=== PATIENT | male | born 1950 | race Caucasian/White ===

== ENCOUNTER 2017-08-21 20:57 | Emergency (ER) | payer MEDICARE, BC ==
--- NOTE | 2017-08-21 21:23 | Emergency Department Record ---
History of Present Illness - General Chief complaint: Male Urogenital Problem Stated complaint: CAN'T URINATE, POST OP Time Seen by Provider: 08/21/17 21:19 Source: Patient Mode of Arrival: Ambulatory Limitations: No limitations - History of Present Illness Initial comments: 66 yo male presents to ED for evaluation of decreased urine stream following stent placement in the left ureter earlier this morning with Dr. Vera. Patient reports mild blood and clots in the urine, but reports that he is able to urinate but his stream is slower and more difficulty than usual. Patient denies fevers, chills, or recent illness symptoms. MD Complaint: Dysuria Onset/Timin -: Days(s) Radiation: None Severity: Moderate Quality: Dull Consistency: Constant Improves with: None Worsens with: Urination Recent surgery Reports: Denies other symptoms - Related Data Home Medications Medication Instructions Recorded Confirmed Last Taken Cilostazol 100 mg PO BID 08/21/17 08/21/17 Unknown Dexlansoprazole [Dexilant] 60 mg PO DAILY 08/21/17 08/21/17 Unknown Enoxaparin Sodium [Enoxaparin 120 mg SQ DAILY 08/21/17 08/21/17 08/20/17 Sodium] Prochlorperazine Maleate 10 mg PO DAILY 08/21/17 08/21/17 Unknown [Compazine] Tramadol HCl [Tramadol HCl] 50 mg PO Q8H 08/21/17 08/21/17 08/21/17 Allergies Allergy/AdvReac Type Severity Reaction Status Date / Time nabumetone [From Relafen] Allergy SWELLING Verified 08/08/14 16:35 OF THE LIPS Review of Systems Constitutional: Denies: Chills, Fever, Malaise, Night sweats Eyes: Denies: Eye discharge, Eye pain ENT: Denies: Congestion, Dental pain Respiratory: Denies: Cough, Dyspnea Cardiovascular: Denies: Chest pain, Dyspnea on exertion Endocrine: Denies: Fatigue, Heat or cold intolerance Gastrointestinal: Denies: Abdominal pain, Nausea, Vomiting Genitourinary: Reports: Dysuria, Retention. Denies: Incontinence Musculoskeletal: Denies: Arthralgia, Back pain, Gout, Joint swelling Skin: Denies: Bruising, Change in color Neurological: Denies: Abnormal gait, Confusion, Headache, Seizure Psychiatric: Denies: Anxiety Hematological/Lymphatic: Denies: Anemia, Blood Clots Past Medical History - SOCIAL HISTORY Smoking Status: Former smoker - RESPIRATORY Hx Respiratory Disorders: No - CARDIOVASCULAR Hx Cardio Disorders: No - NEURO Hx Neuro Disorders: No - GI Hx GI Disorders: No - Hx Prostate Problems: Yes - ENDOCRINE Hx Endocrine Disorders: No - MUSCULOSKELETAL Hx Musculoskeletal Disorders: Yes - PSYCH Hx Psych Problems: No - HEMATOLOGY/ONCOLOGY Hx Hematology/Oncology Disorders: No Physical Exam - General General Appearance: Alert, Oriented x3, Cooperative, Mild distress Limitations: No limitations - Head Head exam: Atraumatic, Normocephalic, Normal inspection Head exam detail: negative: Abrasion, Contusion, Reyes's sign, General tenderness, Hematoma, Laceration - Eye Eye exam: Normal appearance. negative: Conjunctival injection, Periorbital swelling, Periorbital tenderness, Scleral icterus - ENT Ear exam: negative: Auricular hematoma, Auricular trauma Nasal Exam: negative: Active bleeding, Discharge, Dried blood, Foreign body Mouth exam: negative: Drooling, Laceration, Tongue elevation - Neck Neck exam: Normal inspection. negative: Meningismus, Tenderness - Respiratory Respiratory exam: Normal lung sounds bilaterally. negative: Rales, Respiratory distress, Rhonchi, Stridor - Cardiovascular Cardiovascular Exam: Regular rate, Normal rhythm, Normal heart sounds - GI/Abdominal GI/Abdominal exam: Soft. negative: Rebound, Rigid, Tenderness - Rectal Rectal exam: Deferred - exam: Deferred - Extremities Extremities exam: Normal inspection. negative: Pedal edema, Tenderness - Back Back exam: Denies: CVA tenderness (R), CVA tenderness (L) - Neurological Neurological exam: Alert, Normal gait, Oriented X3 - Psychiatric Psychiatric exam: Normal affect, Normal mood - Skin Skin exam: Normal color. negative: Abrasion Type of lesion: negative: abrasion Course - Reevaluation(s) Reevaluation #1: 08/21/17 21:22 Patient is able to urinate on examination, bladder scan reveals 29 mL retained in the bladder following urination. Will send UA for possible infection, allow the patient to drink fluids and reassess his urinary status in 45-60 minutes. Reevaluation #2: 08/21/17 21:46 UA reviewed, no evidence for infection. TNTC RBCs. Reevaluation #3: 08/21/17 21:54 Patient reassessed, he was able to urinate without difficulty, and is more clear. Patient reports that he is ready to go home at this time, was counseled that he may need to return for retention symptoms if a clot occludes the ureter following his surgery. Patient and his SO verbalize understanding, the patient appears stable for discharge at this time. Disposition Disposition: Discharge Clinical Impression: Urinary retention Disposition: Home, Self-Care Condition: (2) Stable Instructions: Urinary Retention in Men (ED) Additional Instructions: Return to ED if your symptoms worsen or if you have any concerns. Follow-up with Dr. Vera in 1-3 days as directed. Forms: Patient Portal Access Time of Disposition: 21:47 Quality - Quality Measures Quality Measures: N/A - Blood Pressure Screening Does Patient Have Any of the Following: No Blood Pressure Classification: Hypertensive Reading Systolic Measurement: 145 Diastolic Measurement: 97 Screening for High Blood Pressure: < First Hypertensive BP, F/U Documented > [ [id number]] First Hypertensive Follow-up Interventions: Referral to alternative/primary care provider.
[2017-08-21 21:39] LABS: URINE APPEARANCE CLEAR; URINE BILIRUBIN NEGATIVE (NEGATIVE); URINE BLOOD LARGE (NEGATIVE); URINE COLOR YELLOW; URINE GLUCOSE (UA) NEGATIVE (NEGATIVE); URINE KETONE NEGATIVE (NEGATIVE); URINE LEUKOCYTE ESTERASE TRACE (NEGATIVE); URINE NITRITE NEGATIVE (NEGATIVE); URINE UROBILINOGEN 0.2 E.U./dL (0.20 - 1.00)
[2017-08-21 21:42] LABS: URINE EPITHELIAL CELLS 0 - 2 (FEW); URINE WBC 0 - 2 (0-2/hpf)
[2017-08-21 21:43] LABS: URINE BACTERIA NONE SEEN
== END 2017-08-21 22:00 | disposition home or self-care (01) ==
LOC: ER 20:57
DX: N99.89 Other postprocedural complications and disorders of genitourinary system (principal); R33.9 Retention of urine, unspecified; R30.0 Dysuria
CPT/HCPCS: 81001; 99283